=== PATIENT | female | born 1955 | race Caucasian/White ===

== ENCOUNTER 2021-10-08 08:11 | Outpatient (CLI) | payer OTHER | END 2021-10-08 08:13 | disposition home or self-care (01) | LOC: NUCLEAR 08:11 | PROVIDERS: ATTEND Internal Medicine Sports Medicine | DX: C73 Malignant neoplasm of thyroid gland (principal) | CPT/HCPCS: 79005; A9517 ==

== ENCOUNTER 2021-10-12 11:26 | Outpatient (CLI) | payer OTHER | END 2021-10-12 11:27 | disposition home or self-care (01) | LOC: NUCLEAR 11:26 | PROVIDERS: ATTEND Internal Medicine Sports Medicine | DX: C73 Malignant neoplasm of thyroid gland (principal) | CPT/HCPCS: 79005; A9517 ==

== ENCOUNTER 2022-10-04 10:14 | Outpatient (CLI) | payer OTHER | END 2022-10-04 10:19 | disposition home or self-care (01) | LOC: NUCLEAR 10:14 | PROVIDERS: ATTEND Internal Medicine Sports Medicine | DX: C73 Malignant neoplasm of thyroid gland (principal) | CPT/HCPCS: 78015; A9528 ==

== ENCOUNTER 2024-03-31 10:45 | Inpatient (IN) | payer OTHER ==
[~2024-03-31] VITALS: Ht 160 cm; Wt 67.1 kg
[2024-03-31 11:36] VITALS: BP 162/83
[2024-03-31 11:37] VITALS: BP 135/73
[2024-03-31] MEDS ORDERED: LOSARTAN POTASS50 MG (11:46)
[2024-03-31] MEDS ORDERED: ATORVASTATIN CA20 MG (11:46)
[2024-03-31] MEDS ORDERED: SYNTHROID88 MCG (11:46)
[2024-03-31] MEDS ORDERED: FAMOTIDINE 40MG (11:47)
[2024-03-31 12:07] LABS: RH POSITIVE
[2024-04-08] MEDS ORDERED: POVIDONE-IODINE 118 ML BOTT TOP ONE (13:15)
[2024-04-08] MEDS ORDERED: METRONIDAZOLE/SODIUM CHLORIDE 500 MG/100 ML PIGGYBACK IV ONE (13:15)
[2024-04-08] MEDS ORDERED: CEFAZOLIN SODIUM 1,000 MG VIAL IV ONE (13:15)
[2024-04-08] MEDS ORDERED: BUPIVACAINE HCL/PF 0.25% 30ML VIAL InF ONE (13:15)
[2024-04-08] MEDS ORDERED: HEMOSTATIC MATRIX WITH THROMBIN KIT TOP ONE (13:30)
[2024-04-08] MEDS ORDERED: SURGIFLO APPLICATOR 1 EACH APPL TOP ONE (13:30)
[2024-04-08] MEDS ORDERED: MORPHINE SULFATE 4 MG/ML CARTRIDGE IV PRN (14:30)
[2024-04-08] MEDS ORDERED: RINGERS SOLUTION,LACTATED 1,000 ML IV SCH (14:30)
[2024-04-08] MEDS ORDERED: KETOROLAC TROMETHAMINE 30 MG VIAL IV ONE ×2 (14:30→16:40)
[2024-04-08] MEDS ORDERED: MORPHINE SULFATE 2 MG/ML CARTRIDGE IV ONE ×2 (15:10→15:40)
[2024-04-08] MEDS ORDERED: ENALAPRILAT DIHYDRATE 1.25 MG/ML VIAL IV ONE (16:40)
[2024-04-08] MEDS ORDERED: CEFAZOLIN SODIUM 1,000 MG VIAL IV SCH (17:00)
[2024-04-08] MEDS ORDERED: SIMETHICONE 125 MG CAPSULE PO SCH (17:00)
[2024-04-08] MEDS ORDERED: KETOROLAC TROMETHAMINE 30 MG VIAL IV SCH (17:00)
[2024-04-08] MEDS ORDERED: METOCLOPRAMIDE HCL 5 MG/ML VIAL IV SCH (17:00)
[2024-04-08 17:50] LABS: HEMATOCRIT 33.6 % (36.0-45.00); HEMOGLOBIN 11.4 g/dL (12.0-15.00); MEAN CELL VOLUME 86.5 fL (80.00-100.00); MEAN CORPUSCULAR HEMOGLOBIN 29.3 pg (27.00-32.0); MEAN CORPUSCULAR HGB CONC 33.8 g/dl (32.0-36.0); PLATELET COUNT 175 K/uL (150-450); RED BLOOD COUNT 3.88 M/uL (4.00-6.00)
[2024-04-08] MEDS ORDERED: ACETAMINOPHEN 500 MG GEL..CAP PO SCH (18:00)
[2024-04-08] MEDS ORDERED: ENALAPRILAT DIHYDRATE 1.25 MG/ML VIAL IV SCH (18:00)
[2024-04-08 18:15] VITALS: BP 135/73; O2SAT 95
[2024-04-08 18:17] LABS: ALBUMIN 3.6 gm/dL (3.4-5.0); CALCIUM 8.3 mg/dL (8.5-10.1); CREATININE SERUM 1.8 mg/dL (0.55-1.02); GFR 27.82; PHOSPHOROUS 4.7 mg/dL (2.5-4.9); POTASSIUM 3.89 mEq/L (3.5-5.1)
[2024-04-08] MEDS ORDERED: GABAPENTIN 300 MG CAPSULE PO SCH (21:00)
[2024-04-08] MEDS ORDERED: FAMOTIDINE/PF 20 MG/2 ML VIAL IV PUSH SCH (21:00)
[2024-04-08] MEDS ORDERED: DOCUSATE SODIUM 100MG CAP PO SCH (21:00)
[2024-04-09 01:44] VITALS: BP 136/75
[2024-04-09 04:31] LABS: HEMATOCRIT 30.3 % (36.0-45.00); MEAN CELL VOLUME 85.8 fL (80.00-100.00); MEAN CORPUSCULAR HGB CONC 34.4 g/dl (32.0-36.0); PLATELET COUNT 159 K/uL (150-450); RED BLOOD COUNT 3.53 M/uL (4.00-6.00); RED CELL DISTRIBUTION WIDTH 14.1 % (11.5-14.5)
[2024-04-09 04:50] LABS: HEMOGLOBIN 10.4 g/dL (12.0-15.00); MEAN CORPUSCULAR HEMOGLOBIN 29.4 pg (27.00-32.0)
[2024-04-09 04:51] LABS: ALBUMIN 3.2 gm/dL (3.4-5.0); CALCIUM 7.9 mg/dL (8.5-10.1); CREATININE SERUM 1.69 mg/dL (0.55-1.02); GFR 29.92; POTASSIUM 4.08 mEq/L (3.5-5.1)
[2024-04-09] MEDS ORDERED: LEVOTHYROXINE SODIUM 88 MCG TABLET PO SCH (06:00)
[2024-04-09 08:40] VITALS: BP 116/60
[2024-04-09] MEDS ORDERED: ENOXAPARIN SODIUM 40 MG/0.4 ML SYRINGE SUBCUTANEO SCH (09:00)
[2024-04-09] MEDS ORDERED: LOSARTAN POTASSIUM 25 MG TABLET PO SCH (09:00)
== END 2024-04-09 15:40 | disposition home or self-care (01) | DRG 737 ==
LOC: O/R 04-08 08:30 → OB/GYN 04-08 09:15
PROVIDERS: Obstetrics & Gynecology; Surgery; ADMIT Obstetrics & Gynecology Gynecologic Oncology; ATTEND Obstetrics & Gynecology Gynecologic Oncology
PROC: 0DBW4ZZ Excision of Peritoneum, Percutaneous Endoscopic Approach (ICD-10-PCS; 2024-04-08)
PROC: 0DBU4ZZ Excision of Omentum, Percutaneous Endoscopic Approach (ICD-10-PCS; 2024-04-08)
PROC: 0DBW4ZX Excision of Peritoneum, Percutaneous Endoscopic Approach, Diagnostic (ICD-10-PCS; 2024-04-08)
PROC: 3E1M48Z Irrigation of Peritoneal Cavity using Irrigating Substance, Percutaneous Endoscopic Approach (ICD-10-PCS; 2024-04-08)
PROC: 0WQF4ZZ Repair Abdominal Wall, Percutaneous Endoscopic Approach (ICD-10-PCS; 2024-04-08)
PROC: 0UT64ZZ Resection of Left Fallopian Tube, Percutaneous Endoscopic Approach (ICD-10-PCS; principal; 2024-04-08 09:15)
PROC: 0UT14ZZ Resection of Left Ovary, Percutaneous Endoscopic Approach (ICD-10-PCS; 2024-04-08 09:15)
DX: C56.2 Malignant neoplasm of left ovary (principal); C48.1 Malignant neoplasm of specified parts of peritoneum; C76.3 Malignant neoplasm of pelvis; K43.9 Ventral hernia without obstruction or gangrene; Z20.822 Contact with and (suspected) exposure to COVID-19

== ENCOUNTER 2024-05-14 07:41 | Outpatient (CLI) | payer OTHER ==
[~2024-05-14 07:41] MED LIST: ATORVASTATIN CA20 MG; FAMOTIDINE 40MG; LOSARTAN POTASS50 MG; SYNTHROID88 MCG
== END 2024-05-14 07:42 | disposition home or self-care (01) ==
LOC: NUCLEAR 07:41
PROVIDERS: ATTEND Internal Medicine Hematology & Oncology
DX: C56.1 Malignant neoplasm of right ovary (principal)
CPT/HCPCS: 78815; A9552

== ENCOUNTER 2024-06-15 07:14 | Day surgery (SDC) | payer OTHER ==
[2024-06-09 08:24] LABS: URINE APPEARANCE Clear; URINE BILIRRUBIN Negative (NEGATIVE); URINE BLOOD Negative; URINE COLOR Yellow; URINE GLUCOSE Negative (NEGATIVE); URINE KETONE Negative (NEGATIVE); URINE LEUKOCYTE Negative; URINE NITRATE Negative; URINE PROTEIN Negative (NEGATIVE); URINE UROBILINOGEN 0.2 E.U./dl
[2024-06-09 08:30] LABS: URINE BACTERIA 17.1 uL (0.0-1933); URINE RBC 2.5 uL (0.0-20.8); URINE WBC 8.5 uL (0.0-23.2)
[2024-06-09 08:31] LABS: HEMATOCRIT 32.7 % (36.0-45.00); HEMOGLOBIN 10.9 g/dL (12.0-15.00); MEAN CELL VOLUME 89.8 fL (80.00-100.00); MEAN CORPUSCULAR HGB CONC 33.4 g/dl (32.0-36.0); PLATELET COUNT 207 K/uL (150-450); RED BLOOD COUNT 3.65 M/uL (4.00-6.00); RED CELL DISTRIBUTION WIDTH 14.4 % (11.5-14.5)
[2024-06-09 08:36] LABS: URINE CAST 0.29 uL (0.0-1.40)
[2024-06-09 08:52] VITALS: BP 123/79
[2024-06-09 09:06] LABS: INR 1.02; PARTIAL THROMBOPLASTIN TIME 26.8 SECONDS (22.0-34.0); PROTHROMBIN TIME 11.1 SECONDS (9.0-11.5)
[2024-06-09 09:49] LABS: BILIRUBIN TOTAL 0.46 mg/dL (0.3-1.2); CREATININE SERUM 1.5 mg/dL (0.55-1.02); GFR 34.33; GLOBULINA 3.7 G/DL (2.4-3.5); POTASSIUM 3.99 mEq/L (3.5-5.1); TOTAL PROTEIN 7.7 gm/dL (6.4-8.2); TSH 1.59 uIU/mL (0.358-3.74)
[~2024-06-15] VITALS: Ht 160 cm; Wt 63.5 kg
[2024-06-15] MEDS ORDERED: CEFAZOLIN SODIUM 1,000 MG VIAL ONE ×2 (14:35→16:57)
[2024-06-15] MEDS ORDERED: LIDOCAINE HCL 1% 20 ML VIAL IJ ONE (15:11)
[2024-06-15] MEDS ORDERED: HEPARIN SODIUM,PORCINE/PF 100 UNIT/ML SYRINGE IV ONE ×2 (15:36→15:44)
[2024-06-15] MEDS ORDERED: CEFAZOLIN SODIUM 1,000 MG VIAL IV SCH (16:45)
== END 2024-06-15 18:05 | disposition home or self-care (01) ==
LOC: CIR.AMB 07:14
PROVIDERS: ATTEND Specialist
DX: C56.2 Malignant neoplasm of left ovary (principal)
CPT/HCPCS: 36561; C1751

== ENCOUNTER 2025-01-07 07:32 | Outpatient (CLI) | payer OTHER | END 2025-01-07 07:34 | disposition home or self-care (01) | LOC: TOM 07:32 | PROVIDERS: ATTEND Internal Medicine Hematology & Oncology | DX: C56.2 Malignant neoplasm of left ovary (principal) | CPT/HCPCS: 71250; 74177; Q9965 ==

== ENCOUNTER 2025-04-14 07:00 | Day surgery (SDC) | payer OTHER ==
[2025-04-06 09:42] VITALS: BP 130/82
[2025-04-06 11:07] LABS: BASO % 0.7 % (0.1-1.2); EOS # 0.20 (0.04-0.54); EOS % 3.3 % (0.7-7.0); LYMPH # 1.09 (1.18-3.74); LYMPH % 17.9 % (19.3-53.1); MEAN PLATELET VOLUME 10.50 fl (9.4-12.4); MONO # 0.50 (0.24-0.82); MONO % 8.2 % (4.7-12.5); NEUT # 4.25 (1.56-6.13); NEUT % 69.7 % (34.0-71.1); RED CELL DISTRIBUTION WIDTH 12.4 % (11.6-14.4)
[2025-04-06 11:29] LABS: INR 1.04
[2025-04-06 11:36] LABS: ALT/SGPT 25.0 U/L (12-78); AST/SGOT 20.0 U/L (15-37); BILIRUBIN TOTAL 0.73 mg/dL (0.3-1.2); BUN CREA RATIO 24.0 (7.0-25.0); CREATININE SERUM 1.13 mg/dL (0.55-1.02); GFR 47.47; GLOBULINA 3.8 G/DL (2.4-3.5); GLUCOSE FASTING 91.0 mg/dL (65-100); OSMOLALITY SERUM 292.0 MOSM/KG (275-295)
[2025-04-06 11:47] LABS: URINE APPEARANCE Clear; URINE BILIRRUBIN Negative (NEGATIVE); URINE BLOOD Negative; URINE COLOR Yellow; URINE GLUCOSE Negative (NEGATIVE); URINE KETONE Negative (NEGATIVE); URINE LEUKOCYTE Small; URINE NITRATE Positive; URINE PROTEIN Negative (NEGATIVE); URINE UROBILINOGEN 0.2 E.U./dl
[2025-04-06 11:59] LABS: URINE BACTERIA MANY; URINE EPITHELIAL CELLS 0-4 /HPF; URINE RBC 19-25 /HPF; URINE WBC 0-2 /hpf
[2025-04-06 12:54] LABS: COVID-19 AG NEGATIVE (NEGATIVE)
[~2025-04-14] VITALS: Ht 160 cm; Wt 63.5 kg
[2025-04-14] MEDS ORDERED: CEFAZOLIN SODIUM 1,000 MG VIAL ONE (07:57)
[2025-04-14] MEDS ORDERED: METRONIDAZOLE/SODIUM CHLORIDE 500 MG/100 ML PIGGYBACK IV ONE (07:57)
[2025-04-14] MEDS ORDERED: POVIDONE-IODINE 118 ML BOTT TOP ONE (09:54)
[2025-04-14] MEDS ORDERED: BUPIVACAINE HCL/MPF 0.5% 30ML VIAL ONE (09:54)
[2025-04-14] MEDS ORDERED: LIDOCAINE HCL 1%/EPINEPHRINE 20ML VIAL IJ ONE (09:55)
== END 2025-04-14 15:30 | disposition home or self-care (01) ==
LOC: O/R 07:00 → SURH 07:00 → CIR.AMB 07:00 → SURH 09:00 → EDSTATUS 09:00 → SURH 09:15 → O/R 15:30 → CIR.AMB 15:30
PROVIDERS: ATTEND Obstetrics & Gynecology Gynecologic Oncology
DX: C56.9 Malignant neoplasm of unspecified ovary (principal); C78.6 Secondary malignant neoplasm of retroperitoneum and peritoneum